=== PATIENT | female | born 1955 | race African-American/Black ===

== ENCOUNTER 2017-06-08 22:02 | Emergency (ER) | payer OTHER, MEDICAID ==
[~2017-06-08] VITALS: Ht 167.6 cm; Wt 65.0 kg
[~2017-06-08 22:02] MED LIST: ACET-3161 PO; ATEN50TA PO; NAPR-681 PO; QUET100T PO
[2017-06-08] MEDS ORDERED: SODIUM CHLORIDE 0.9% 1,000 ML IV ONE (23:12)
[2017-06-08] MEDS ORDERED: METOCLOPRAMIDE HCL 10MG/2ML VIAL IV ONE (23:15)
[2017-06-08] MEDS ORDERED: DIPHENHYDRAMINE 50MG/ML VIAL IV ONE (23:15)
[2017-06-09 00:23] LABS: BASOPHILS % 0.3 % (0.0-2.0); EOSINOPHILS % 0.1 % (0.0-5.0); HEMATOCRIT. 41.6 % (36.0-48.0); HEMOGLOBIN. 14.3 g/dL (12.0-16.0); LYMPHOCYTES % 12.6 % (20.0-50.0); MEAN CORPUSCULAR HEMOGLOBIN 33.9 pg (28.0-32.0); MEAN CORPUSCULAR VOLUME 98.9 fL (81.0-99.0); MEAN PLATELET VOLUME 7.4 fl (7.4-10.4); MONOCYTES % 6.6 % (2.0-8.0); NEUTROPHILS % 80.4 % (40.0-76.0); PLATELET 217 x1000/uL (130-400); RED BLOOD CELL COUNT 4.21 mill/uL (4.2-5.4); RED CELL DISTRIBUTION WIDTH 12.4 % (11.6-14.6)
[2017-06-09 00:36] LABS: CARBON DIOXIDE 28 mEq/L (21-32); CHLORIDE 86 mEq/L (98-107); TROPONIN I < 0.02 ng/mL (0.00-0.04)
[2017-06-09] MEDS ORDERED: MORPHINE SULFATE 4 MG/ML CPJ (NOT FOR IM USE) IV ONE (01:30)
[2017-06-09] MEDS ORDERED: NICARDIPINE 40MG/200ML PREMIX 200 ML IV SCH (01:30)
[2017-06-09] MEDS ORDERED: FENTANYL CITRATE/PF 50MCG/ML 2ML VIAL IV ONE (01:45)
[2017-06-09 02:28] VITALS: BP 165/64
== END 2017-06-09 02:37 | disposition short-term general hospital (02) ==
LOC: ER 22:33
DX: I60.9 Nontraumatic subarachnoid hemorrhage, unspecified (principal); I72.9 Aneurysm of unspecified site; I11.9 Hypertensive heart disease without heart failure; I51.7 Cardiomegaly; E78.00 Pure hypercholesterolemia, unspecified; F17.200 Nicotine dependence, unspecified, uncomplicated; Z88.0 Allergy status to penicillin; Z79.899 Other long term (current) drug therapy
CPT/HCPCS: 36415; 70450; 71010; 80053; 84484; 85025; 85610; 93005; 96374; 99285; J1200; J2270; J3010; J7030; J2765

== ENCOUNTER 2017-07-27 16:39 | Emergency (ER) | payer OTHER, MEDICAID ==
[~2017-07-27] VITALS: Ht 162.6 cm; Wt 70.0 kg
[2017-07-27] MEDS ORDERED: HYDROCODONE/ACETAMINOPHEN 5/325MG TABLET PO ONE (18:00)
[2017-07-27 18:46] VITALS: BP 182/100
== END 2017-07-27 20:10 | disposition home or self-care (01) ==
LOC: ER 16:52
DX: G91.9 Hydrocephalus, unspecified (principal); R51 Headache; E78.00 Pure hypercholesterolemia, unspecified; I10 Essential (primary) hypertension; F32.9 Major depressive disorder, single episode, unspecified; Z88.0 Allergy status to penicillin
CPT/HCPCS: 70450; 99284

== ENCOUNTER 2018-04-08 13:24 | Emergency (ER) | payer OTHER, MEDICAID ==
[~2018-04-08] VITALS: Ht 165.1 cm; Wt 70.0 kg
[2018-04-08] MEDS ORDERED: HYDROCODONE/ACETAMINOPHEN 5/325MG TABLET PO ONE (19:30)
[2018-04-08 19:57] VITALS: BP 117/87
== END 2018-04-08 20:00 | disposition home or self-care (01) ==
LOC: ER 13:24
DX: S52.591A Other fractures of lower end of right radius, initial encounter for closed fracture (principal); S72.092A Other fracture of head and neck of left femur, initial encounter for closed fracture; F32.9 Major depressive disorder, single episode, unspecified; E78.00 Pure hypercholesterolemia, unspecified; I10 Essential (primary) hypertension; W18.39XA Other fall on same level, initial encounter; Y93.89 Activity, other specified; Y92.89 Other specified places as the place of occurrence of the external cause; Y99.8 Other external cause status; Z88.0 Allergy status to penicillin; Z79.899 Other long term (current) drug therapy
CPT/HCPCS: 29125; 73090; 73110; 73130; 73502; 99284; A4565

== ENCOUNTER 2018-06-02 18:04 | Emergency (ER) | payer MEDICARE, OTHER ==
[~2018-06-02] VITALS: Ht 165.1 cm; Wt 60.0 kg
[2018-06-02] MEDS ORDERED: KETOROLAC 30MG/ML VIAL IV STA (18:49)
[2018-06-02 20:00] LABS: BASOPHILS % 1.2 % (0.0-2.0); EOSINOPHILS % 3.9 % (0.0-5.0); HEMATOCRIT. 45.2 % (36.0-48.0); HEMOGLOBIN. 14.1 g/dL (12.0-16.0); LYMPHOCYTES % 51.3 % (20.0-50.0); MEAN CORPUSCULAR HEMOGLOBIN 34.3 pg (28.0-32.0); MEAN CORPUSCULAR VOLUME 109.5 fL (81.0-99.0); MEAN PLATELET VOLUME 8.2 fl (7.4-10.4); MONOCYTES % 6.2 % (2.0-8.0); NEUTROPHILS % 37.4 % (40.0-76.0); PLATELET 270 x1000/uL (130-400); RED BLOOD CELL COUNT 4.13 mill/uL (4.2-5.4); RED CELL DISTRIBUTION WIDTH 14.1 % (11.6-14.6)
[2018-06-02 20:04] LABS: CLARITY URINE CLOUDY (CLEAR); COLOR URINE YELLOW (YELLOW); KETONES URINE NEGATIVE (NEGATIVE); LEUKOCYTE ESTERASE URINE NEGATIVE (NEGATIVE); NITRITE URINE NEGATIVE (NEGATIVE); OCCULT BLOOD URINE NEGATIVE (NEGATIVE); PH URINE >=9.0 (4.5-8.0); PROTEIN URINE NEGATIVE (NEGATIVE)
[2018-06-02 20:05] LABS: CHLORIDE 110 mEq/L (98-107)
[2018-06-02] MEDS ORDERED: TRAMADOL 50MG TABLET PO ONE (22:00)
[2018-06-02] MEDS ORDERED: ACETAMINOPHEN 325MG TABLET PO ONE (22:15)
[2018-06-03 03:40] VITALS: BP 112/84
== END 2018-06-03 03:42 | disposition home or self-care (01) ==
LOC: ER 18:04
DX: R51 Headache (principal); E78.00 Pure hypercholesterolemia, unspecified; I10 Essential (primary) hypertension; F32.9 Major depressive disorder, single episode, unspecified; Z86.73 Personal history of transient ischemic attack (TIA), and cerebral infarction without residual deficits; Z88.0 Allergy status to penicillin; Z79.899 Other long term (current) drug therapy
CPT/HCPCS: 36415; 70450; 80053; 81003; 85025; 96374; 99285; J1885; J7030

== ENCOUNTER 2018-06-03 04:10 | Emergency (ER) | payer OTHER, MEDICAID ==
[~2018-06-03] VITALS: Ht 165.1 cm; Wt 68.2 kg
[2018-06-03] MEDS ORDERED: KETOROLAC 30MG/ML VIAL IV STA (06:22)
[2018-06-03] MEDS ORDERED: ONDANSETRON HCL 4MG/2ML INJ IV STA (06:22)
[2018-06-03] MEDS ORDERED: SODIUM CHLORIDE 0.9% 1,000 ML IV ONE (06:33)
[2018-06-03 09:19] VITALS: BP 128/69
== END 2018-06-03 09:33 | disposition home or self-care (01) ==
LOC: ER 06:01
DX: R51 Headache (principal); M06.9 Rheumatoid arthritis, unspecified; I10 Essential (primary) hypertension; F17.200 Nicotine dependence, unspecified, uncomplicated
CPT/HCPCS: 96374; 96375; 99285; J1885; J2405; J7030

== ENCOUNTER 2018-07-04 17:18 | Inpatient (IN) | payer OTHER, MEDICAID ==
[~2018-07-04] VITALS: Ht 165.1 cm; Wt 68.0 kg
[2018-07-04] MEDS ORDERED: ONDANSETRON HCL 4MG/2ML INJ IV STA (18:34)
[2018-07-04] MEDS ORDERED: MORPHINE SULFATE 4 MG/ML CPJ (NOT FOR IM USE) IV STA (18:34)
[2018-07-04] MEDS ORDERED: SODIUM CHLORIDE 0.9% 1,000 ML IV ONE (18:36)
[2018-07-04 19:07] LABS: BASOPHILS % 0.8 % (0.0-2.0); EOSINOPHILS % 3.7 % (0.0-5.0); HEMATOCRIT. 42.6 % (36.0-48.0); HEMOGLOBIN. 13.9 g/dL (12.0-16.0); LYMPHOCYTES % 28.7 % (20.0-50.0); MEAN CORPUSCULAR VOLUME 104.6 fL (81.0-99.0); MEAN PLATELET VOLUME 7.2 fl (7.4-10.4); MONOCYTES % 4.1 % (2.0-8.0); NEUTROPHILS % 62.7 % (40.0-76.0); PLATELET 274 x1000/uL (130-400); RED BLOOD CELL COUNT 4.07 mill/uL (4.2-5.4); RED CELL DISTRIBUTION WIDTH 14.5 % (11.6-14.6)
[2018-07-04 19:15] LABS: CHLORIDE 107 mEq/L (98-107); PARTIAL THROMBOPLASTIN TIME 26.4 sec (23.4-31.0); PROTHROMBIN TIME 10.1 sec (9.1-11.1)
[2018-07-04 19:25] LABS: ETHANOL BLOOD < 10 mg/dL
[2018-07-04] MEDS ORDERED: MORPHINE SULFATE 4 MG/ML CPJ (NOT FOR IM USE) IV ONE (21:45)
[2018-07-04] MEDS ORDERED: ONDANSETRON HCL 4MG/2ML INJ IV ONE (21:45)
[2018-07-04] MEDS ORDERED: ENALAPRIL 2.5MG/2ML VIAL 2ML IV ONE (21:45)
[2018-07-04] MEDS ORDERED: IOHEXOL-350 100 ML BOTTLE ONE (22:05)
[2018-07-05] MEDS ORDERED: HYDROMORPHONE HCL/PF 2MG/ML CPJ IV PRN (01:30)
[2018-07-05 04:00] VITALS: BP 138/72
[2018-07-05] MEDS ORDERED: ACETAMINOPHEN WITH CODEINE PO PRN (04:30)
[2018-07-05] MEDS ORDERED: CLONIDINE 0.1MG TABLET PO PRN (04:45)
[2018-07-05] MEDS ORDERED: ONDANSETRON HCL 4MG/2ML INJ IV PRN (04:45)
[2018-07-05] MEDS ORDERED: ACETAMINOPHEN WITH CODEINE 300/30MG TABLET PO PRN (04:45)
[2018-07-05 08:00] VITALS: BP 146/48
[2018-07-05] MEDS: NAPROXEN 250MG TABLET PO SCH ×2 (08:18→13:42)
[2018-07-05] MEDS: QUETIAPINE FUMARATE 100MG TABLET PO SCH ×3 (08:18→17:42)
[2018-07-05] MEDS: ATENOLOL 50 MG TABLET PO SCH (08:19)
[2018-07-05] MEDS ORDERED: MEDICATION NOT ON FORMULARY EA (Atenolol 1 TAB) PO SCH (09:00)
[2018-07-05] MEDS ORDERED: NAPROXEN PO SCH (09:00)
[2018-07-05 12:00] VITALS: BP 133/78
[2018-07-05 16:00] VITALS: BP 98/57
[2018-07-05 20:00] VITALS: BP 99/53
[2018-07-06] VITALS: BP 95/71
[2018-07-06] MEDS: METHYLPREDNISOLONE 4MG TABLET PO SCH ×2 (00:32→09:48)
[2018-07-06] MEDS: FAMOTIDINE 20MG TABLET PO SCH ×2 (00:32→09:48)
[2018-07-06] MEDS: HYDROMORPHONE HCL/PF 2MG/ML CPJ IV PRN ×2 (00:35→09:47)
[2018-07-06 04:00] VITALS: BP 120/74
[2018-07-06 08:00] VITALS: BP 155/95
[2018-07-06] MEDS: QUETIAPINE FUMARATE 100MG TABLET PO SCH (09:47)
[2018-07-06] MEDS: ATENOLOL 50 MG TABLET PO SCH (09:48)
[2018-07-06] MEDS ORDERED: HYDR-4001 PO ×2 (11:23→11:24)
[2018-07-06 11:25] VITALS: BP 155/95
== END 2018-07-06 12:05 | disposition home or self-care (01) | DRG 74 ==
LOC: ER 17:18 → 7WST 21:55 → EDBEDREQ 22:03 → EDBEDREQTM 22:03 → ENRESERV 07-05 02:24 → 7WST 07-05 05:20
PROVIDERS: ADMIT Internal Medicine; ATTEND Internal Medicine
DX: G90.8 Other disorders of autonomic nervous system (principal); I10 Essential (primary) hypertension; F17.210 Nicotine dependence, cigarettes, uncomplicated; G43.909 Migraine, unspecified, not intractable, without status migrainosus; M19.90 Unspecified osteoarthritis, unspecified site; F32.9 Major depressive disorder, single episode, unspecified; Z86.79 Personal history of other diseases of the circulatory system; Z88.0 Allergy status to penicillin; Z79.899 Other long term (current) drug therapy; Z71.6 Tobacco abuse counseling
CPT/HCPCS: 36415; 70496; 71045; 83880; 84484; 93005; 96361; 96374; 96375; 99291; G0482; J1170; J2270; J2405; J3490; J7030; J7509; Q9967

== ENCOUNTER 2018-08-31 09:45 | Emergency (ER) | payer OTHER, MEDICAID ==
[~2018-08-31] VITALS: Ht 165.1 cm; Wt 70.0 kg
[~2018-08-31 09:45] MED LIST changes: +HYDR-4001 PO
[2018-08-31] MEDS ORDERED: SODIUM CHLORIDE 0.9% 1,000 ML IV ONE (11:05)
[2018-08-31] MEDS ORDERED: MORPHINE SULFATE 4 MG/ML CPJ (NOT FOR IM USE) IV STA (11:05)
[2018-08-31 12:20] LABS: BASOPHILS % 0.9 % (0.0-2.0); EOSINOPHILS % 0.8 % (0.0-5.0); HEMATOCRIT. 42.4 % (36.0-48.0); LYMPHOCYTES % 31.1 % (20.0-50.0); MEAN CORPUSCULAR HEMOGLOBIN 34.6 pg (28.0-32.0); MEAN CORPUSCULAR VOLUME 105.2 fL (81.0-99.0); MONOCYTES % 6.6 % (2.0-8.0); NEUTROPHILS % 60.6 % (40.0-76.0); RED BLOOD CELL COUNT 4.03 mill/uL (4.2-5.4); RED CELL DISTRIBUTION WIDTH 14.5 % (11.6-14.6)
[2018-08-31 12:23] LABS: CHLORIDE 104 mEq/L (98-107)
[2018-08-31 12:25] LABS: PROTHROMBIN TIME 10.3 sec (9.1-11.1)
[2018-08-31 13:00] LABS: PLATELET 267 x1000/uL (130-400)
[2018-08-31] MEDS ORDERED: MORPHINE SULFATE 10 MG/ML CPJ IV NR (13:47)
[2018-08-31] MEDS ORDERED: MORPHINE SULFATE 10 MG/ML CPJ IM ONE (14:30)
[2018-08-31 16:13] LABS: CLARITY URINE CLEAR (CLEAR); COLOR URINE YELLOW (YELLOW); KETONES URINE TRACE (NEGATIVE); LEUKOCYTE ESTERASE URINE NEGATIVE (NEGATIVE); NITRITE URINE NEGATIVE (NEGATIVE); OCCULT BLOOD URINE NEGATIVE (NEGATIVE); PH URINE 6.5 (4.5-8.0); PROTEIN URINE TRACE (NEGATIVE); SPECIFIC GRAVITY URINE 1.019 (1.005-1.030)
[2018-08-31 16:44] VITALS: BP 148/92
== END 2018-08-31 16:50 | disposition home or self-care (01) ==
LOC: ER 09:45
DX: R51 Headache (principal); R10.9 Unspecified abdominal pain; F32.9 Major depressive disorder, single episode, unspecified; R61 Generalized hyperhidrosis; I10 Essential (primary) hypertension; M19.90 Unspecified osteoarthritis, unspecified site; R50.9 Fever, unspecified; Z88.0 Allergy status to penicillin; Z79.899 Other long term (current) drug therapy
CPT/HCPCS: 36415; 70450; 74176; 80053; 81003; 83690; 85025; 85610; 96372; 99284; J2270; J7030

== ENCOUNTER 2019-01-08 20:05 | Inpatient (IN) | payer OTHER, MEDICAID ==
[~2019-01-08] VITALS: Ht 162.6 cm; Wt 67.1 kg
[2019-01-08] MEDS ORDERED: DIPHENHYDRAMINE 50MG/ML VIAL IV ONE (22:45)
[2019-01-08] MEDS ORDERED: SODIUM CHLORIDE 0.9% 500 ML IV ONE (22:45)
[2019-01-08] MEDS ORDERED: METOCLOPRAMIDE HCL 10MG/2ML VIAL IV ONE (22:45)
[2019-01-08 23:18] LABS: BASOPHILS % 1.2 % (0.0-2.0); EOSINOPHILS % 8.3 % (0.0-5.0); HEMATOCRIT. 36.7 % (36.0-48.0); LYMPHOCYTES % 52.5 % (20.0-50.0); MEAN CORPUSCULAR HEMOGLOBIN 34.1 pg (28.0-32.0); MEAN CORPUSCULAR VOLUME 104.1 fL (81.0-99.0); MONOCYTES % 5.5 % (2.0-8.0); NEUTROPHILS % 32.5 % (40.0-76.0); RED BLOOD CELL COUNT 3.53 mill/uL (4.2-5.4); RED CELL DISTRIBUTION WIDTH 14.2 % (11.6-14.6)
[2019-01-08 23:23] LABS: CHLORIDE 108 mEq/L (98-107)
[2019-01-09] VITALS (7 sets, daily range): BP systolic 129–166; BP diastolic 69–94
[2019-01-09 00:21] LABS: MEAN PLATELET VOLUME 7.4 fl (7.4-10.4)
[2019-01-09 00:22] LABS: PLATELET 263 x1000/uL (130-400)
[2019-01-09] MEDS ORDERED: KETOROLAC 30MG/ML VIAL IV ONE (00:45)
[2019-01-09] MEDS ORDERED: HYDROCODONE/ACETAMINOPHEN 5/325MG TABLET PO ONE (01:30)
[2019-01-09 04:39] LABS: CLARITY URINE CLEAR (CLEAR); COLOR URINE YELLOW (YELLOW); KETONES URINE NEGATIVE (NEGATIVE); LEUKOCYTE ESTERASE URINE NEGATIVE (NEGATIVE); NITRITE URINE NEGATIVE (NEGATIVE); OCCULT BLOOD URINE NEGATIVE (NEGATIVE); PH URINE 5.5 (4.5-8.0); PROTEIN URINE NEGATIVE (NEGATIVE); SPECIFIC GRAVITY URINE 1.004 (1.005-1.030); UROBILINOGEN URINE 0.2 E.U./dL (0.2-1.0)
[2019-01-09] MEDS ORDERED: ALPR2TAB2 PO (05:39)
[2019-01-09] MEDS ORDERED: CLON0.1T PO (05:39)
[2019-01-09] MEDS ORDERED: ZOLP10TA2 PO (05:39)
[2019-01-09] MEDS ORDERED: NITROGLYCERIN OINT 1GM/INCH UDPKT TD PRN (06:30)
[2019-01-09] MEDS ORDERED: ACETAMINOPHEN WITH CODEINE PO PRN (06:30)
[2019-01-09] MEDS ORDERED: ACETAMINOPHEN WITH CODEINE 300/30MG TABLET PO PRN (07:15)
[2019-01-09] MEDS: QUETIAPINE FUMARATE 100MG TABLET PO SCH ×3 (08:24→19:39)
[2019-01-09] MEDS: HYDROMORPHONE HCL/PF 2MG/ML CPJ IV PRN ×2 (08:26→13:06)
[2019-01-09] MEDS ORDERED: CLONIDINE 0.1MG TABLET PO SCH (09:00)
[2019-01-09] MEDS ORDERED: FAMOTIDINE 20MG TABLET PO SCH (09:00)
[2019-01-09 10:45] LABS: BASOPHILS % 0.8 % (0.0-2.0); EOSINOPHILS % 4.9 % (0.0-5.0); HEMATOCRIT. 37.2 % (36.0-48.0); HEMOGLOBIN. 12.1 g/dL (12.0-16.0); MEAN CORPUSCULAR HEMOGLOBIN 33.9 pg (28.0-32.0); MEAN CORPUSCULAR VOLUME 104.1 fL (81.0-99.0); MEAN PLATELET VOLUME 7.4 fl (7.4-10.4); MONOCYTES % 3.3 % (2.0-8.0); PLATELET 289 x1000/uL (130-400); RED BLOOD CELL COUNT 3.58 mill/uL (4.2-5.4); RED CELL DISTRIBUTION WIDTH 14.5 % (11.6-14.6)
[2019-01-09 10:54] LABS: CHLORIDE 112 mEq/L (98-107)
[2019-01-09] MEDS ORDERED: ALPRAZOLAM 0.25 MG TABLET PO PRN (11:30)
[2019-01-09 12:08] LABS: PROTHROMBIN TIME 10.2 sec (9.6-11.0)
[2019-01-09] MEDS ORDERED: SODIUM CHLORIDE 0.45% 1,000 ML IV SCH (13:00)
[2019-01-09] MEDS ORDERED: AMLODIPINE 5MG TABLET PO SCH (13:00)
[2019-01-09 13:06] LABS: METHADONE URINE SCREEN NEGATIVE (NEGATIVE)
[2019-01-09 13:07] LABS: CANNABINOID URINE SCREEN PRESUMTIVE POSITIVE (NEGATIVE); OPIATES URINE SCREEN NEGATIVE (NEGATIVE); PHENCYCLIDINE URINE SCREEN NEGATIVE (NEGATIVE)
[2019-01-09 13:15] LABS: *AMPHETAMINES SCREEN URINE NEGATIVE (NEGATIVE)
[2019-01-09 13:18] LABS: *BARBITURATES SCREEN URINE NEGATIVE (NEGATIVE)
[2019-01-09 13:19] LABS: *BENZODIAZEPINES SCREEN URINE NEGATIVE (NEGATIVE); *COCAINE SCREEN URINE PRESUMTIVE POSITIVE (NEGATIVE)
[2019-01-09] MEDS ORDERED: IOHEXOL-350 100 ML BOTTLE ONE (17:41)
== END 2019-01-09 21:37 | disposition home or self-care (01) | DRG 103 ==
LOC: ER 20:05 → EDBEDREQ 01-09 03:16 → EDBEDREQTM 01-09 03:16 → ENRESERV 01-09 03:26 → 6WST 01-09 05:17
PROVIDERS: ADMIT Internal Medicine; ATTEND Internal Medicine
DX: G43.909 Migraine, unspecified, not intractable, without status migrainosus (principal); J44.1 Chronic obstructive pulmonary disease with (acute) exacerbation; E86.0 Dehydration; E78.5 Hyperlipidemia, unspecified; F17.200 Nicotine dependence, unspecified, uncomplicated; F32.9 Major depressive disorder, single episode, unspecified; I10 Essential (primary) hypertension; R29.6 Repeated falls; F19.10 Other psychoactive substance abuse, uncomplicated; I72.9 Aneurysm of unspecified site; W18.30XA Fall on same level, unspecified, initial encounter; R26.9 Unspecified abnormalities of gait and mobility; Y92.89 Other specified places as the place of occurrence of the external cause; Y93.89 Activity, other specified; Y99.8 Other external cause status; Z79.1 Long term (current) use of non-steroidal anti-inflammatories (NSAID); Z79.899 Other long term (current) drug therapy
CPT/HCPCS: 36415; 70496; 71045; 80305; 83880; 84484; 93005; 96374; 97162; 99285; J1170; J1200; J1885; J2765; J7040; Q9967

== ENCOUNTER 2019-04-05 09:36 | Emergency (ER) | payer OTHER, MEDICAID ==
[~2019-04-05] VITALS: Ht 167.6 cm; Wt 76.0 kg
[~2019-04-05 09:36] MED LIST changes: +ALPR2TAB2 PO; -ATEN50TA PO; +CLON0.1T PO; -HYDR-4001 PO; +ZOLP10TA2 PO
[2019-04-05] MEDS ORDERED: TRAMADOL 50MG TABLET PO ONE (10:15)
[2019-04-05] MEDS ORDERED: ACETAMINOPHEN 325MG TABLET PO STA (10:15)
[2019-04-05] MEDS ORDERED: CLONIDINE 0.2MG TABLET PO ONE (10:15)
[2019-04-05 10:26] LABS: EOSINOPHILS % 5.8 % (0.0-5.0); HEMATOCRIT. 47.5 % (36.0-48.0); HEMOGLOBIN. 15.6 g/dL (12.0-16.0); LYMPHOCYTES % 38.6 % (20.0-50.0); MEAN CORPUSCULAR HEMOGLOBIN 34.1 pg (28.0-32.0); MEAN CORPUSCULAR VOLUME 103.5 fL (81.0-99.0); MONOCYTES % 4.8 % (2.0-8.0); NEUTROPHILS % 49.8 % (40.0-76.0); RED BLOOD CELL COUNT 4.58 mill/uL (4.2-5.4); RED CELL DISTRIBUTION WIDTH 14.2 % (11.6-14.6)
[2019-04-05 11:19] LABS: MEAN PLATELET VOLUME 7.5 fl (7.4-10.4); PLATELET 331 x1000/uL (130-400)
[2019-04-05 12:09] LABS: CHLORIDE 106 mEq/L (98-107)
[2019-04-05] MEDS ORDERED: IBUPROFEN 400MG TABLET PO ONE (13:30)
[2019-04-05 14:52] VITALS: BP 134/85
== END 2019-04-05 15:03 | disposition home or self-care (01) ==
LOC: ER 10:02
DX: R51 Headache (principal); M54.5 Low back pain; I10 Essential (primary) hypertension; M19.90 Unspecified osteoarthritis, unspecified site; F32.9 Major depressive disorder, single episode, unspecified; I67.1 Cerebral aneurysm, nonruptured; Z88.0 Allergy status to penicillin; W18.2XXA Fall in (into) shower or empty bathtub, initial encounter; Y93.E1 Activity, personal bathing and showering; Y92.012 Bathroom of single-family (private) house as the place of occurrence of the external cause
CPT/HCPCS: 36415; 71045; 72100; 83880; 84484; 93005; 99284

== ENCOUNTER 2020-05-26 12:48 | Emergency (ER) | payer OTHER, MEDICAID ==
[~2020-05-26] VITALS: Ht 170.2 cm; Wt 59.0 kg
[2020-05-26] MEDS ORDERED: MORPHINE SULFATE 4 MG/ML CPJ (NOT FOR IM USE) IV STA (13:14)
[2020-05-26] MEDS ORDERED: ONDANSETRON HCL 4MG/2ML INJ IV STA (13:14)
[2020-05-26 14:14] LABS: BASOPHILS % 1.6 % (0.0-2.0); EOSINOPHILS % 5.4 % (0.0-5.0); HEMATOCRIT. 40.3 % (36.0-48.0); HEMOGLOBIN. 13.4 g/dL (12.0-16.0); LYMPHOCYTES % 52.8 % (20.0-50.0); MEAN CORPUSCULAR HEMOGLOBIN 35.2 pg (28.0-32.0); MEAN CORPUSCULAR VOLUME 105.8 fL (81.0-99.0); MEAN PLATELET VOLUME 7.2 fl (7.4-10.4); MONOCYTES % 6.2 % (2.0-8.0); PLATELET 283 x1000/uL (130-400); RED CELL DISTRIBUTION WIDTH 17.7 % (11.6-14.6)
[2020-05-26 14:21] LABS: CHLORIDE 107 mEq/L (98-107)
[2020-05-26 14:24] LABS: PROTHROMBIN TIME 10.5 sec (9.6-11.0)
[2020-05-26] MEDS ORDERED: FENTANYL CITRATE/PF 50MCG/ML 2ML VIAL IV ONE ×3 (14:30→17:45)
[2020-05-26 14:48] LABS: CLARITY URINE CLOUDY (CLEAR); COLOR URINE DARK YELLOW (YELLOW); KETONES URINE TRACE (NEGATIVE); LEUKOCYTE ESTERASE URINE NEGATIVE (NEGATIVE); NITRITE URINE NEGATIVE (NEGATIVE); OCCULT BLOOD URINE NEGATIVE (NEGATIVE); PROTEIN URINE TRACE (NEGATIVE); SPECIFIC GRAVITY URINE 1.027 (1.005-1.030)
[2020-05-26 18:36] VITALS: BP 118/84
== END 2020-05-26 18:39 | disposition home or self-care (01) ==
LOC: ER 12:48
DX: S09.8XXA Other specified injuries of head, initial encounter (principal); W18.39XA Other fall on same level, initial encounter; Y93.89 Activity, other specified; Y92.89 Other specified places as the place of occurrence of the external cause; Y99.8 Other external cause status; F17.290 Nicotine dependence, other tobacco product, uncomplicated; F32.9 Major depressive disorder, single episode, unspecified; I10 Essential (primary) hypertension; Z79.899 Other long term (current) drug therapy; Z88.0 Allergy status to penicillin
CPT/HCPCS: 36415; 70450; 71045; 72125; 80053; 81003; 85025; 85610; 93005; 96374; 96375; 96376; 99285; 99406; J2405; J3010

== ENCOUNTER 2024-05-21 19:27 | Emergency (ER) | payer MEDICARE, MEDICAID ==
[~2024-05-21] VITALS: Ht 165.1 cm; Wt 57.0 kg
[~2024-05-21 19:27] MED LIST changes: +AMLO5TAB4 MT; +ASPI-1406 MT; +ATOR20TA65 PO
[2024-05-21 19:35] VITALS: BP 147/8; TEMP 98.1; O2SAT 98
[2024-05-21 19:36] VITALS: PULSE 99; O2SAT 98
[2024-05-21] MEDS ORDERED: ZOLP5TAB2 MT (20:15)
[2024-05-21] MEDS ORDERED: GABA-529 MT (20:15)
[2024-05-21] MEDS ORDERED: ONDA4TAB50 MT (20:15)
[2024-05-21] MEDS ORDERED: HYDR-4001 MT (20:15)
[2024-05-21 20:30] VITALS: RESP 19
== END 2024-05-21 20:35 | disposition home or self-care (01) ==
LOC: ER 19:27
DX: R68.89 Other general symptoms and signs (principal); F32.9 Major depressive disorder, single episode, unspecified; I10 Essential (primary) hypertension; Z79.899 Other long term (current) drug therapy; Z76.0 Encounter for issue of repeat prescription; Z88.0 Allergy status to penicillin
CPT/HCPCS: 99283

== ENCOUNTER 2025-07-26 11:28 | Inpatient (IN) | payer MEDICARE, MEDICAID ==
[~2025-07-26] VITALS: Ht 165.1 cm; Wt 62.1 kg
[~2025-07-26 11:28] MED LIST changes: -ACET-3161 PO; -ALPR2TAB2 PO; -AMLO5TAB4 MT; +AMLO5TAB6 MT; +ASCO500T20 PO; -ASPI-1406 MT; +DOCU-422 PO; +GABA-529 MT; -NAPR-681 PO; +ONDA4TAB50 MT; +PROT40 MT; +QUET50TA PO; +SUCR1TAB PO; -ZOLP10TA2 PO
[2025-07-26 11:31] VITALS: O2SAT 96
[2025-07-26] MEDS: SODIUM CHLORIDE 0.9% 1,000 ML IV ONE (12:12)
[2025-07-26 12:21] LABS: BASOPHILS % 0.9 % (0.0-2.0); EOSINOPHILS % 3.0 % (0.0-5.0); HEMATOCRIT. 42.1 % (36.0-48.0); HEMOGLOBIN. 13.7 g/dL (12.0-16.0); LYMPHOCYTES % 24.9 % (20.0-50.0); MEAN PLATELET VOLUME 6.4 fl (7.4-10.4); MONOCYTES % 6.9 % (2.0-8.0); NEUTROPHILS % 64.3 % (40.0-76.0); PLATELET 415 x1000/uL (130-400); RED BLOOD CELL COUNT 4.15 mill/uL (4.2-5.4); RED CELL DISTRIBUTION WIDTH 15.5 % (11.6-14.6)
[2025-07-26 12:34] LABS: CREATININE 0.9 mg/dL (0.6-1.0); UREA NITROGEN BLOOD 12 mg/dL (9-23)
[2025-07-26 12:36] LABS: ASPARTATE AMINOTRANSFERASE 23 IU/L (<34); BILIRUBIN DIRECT < 0.1 mg/dL (<=3.0); BILIRUBIN TOTAL 0.4 mg/dL (0.1-1.0); PROTEIN TOTAL 7.9 g/dL (6.0-8.3)
[2025-07-26] MEDS: MORPHINE SULFATE 4 MG/ML INJ (FOR IV/IM USE) IV ONE (12:57)
[2025-07-26] MEDS: ONDANSETRON HCL 4MG/2ML INJ IV ONE (12:58)
[2025-07-26 15:48] VITALS: BP 145/95; RESP 16; TEMP 36.9; O2SAT 100
[2025-07-26 16:27] VITALS: BP 147/95; PULSE 93; RESP 16; TEMP 36.9184
[2025-07-26] MEDS ORDERED: MAGNESIUM/ALUMINUM HYDROXIDE/SIMETHICONE 30ML UDC PO PRN (17:00)
[2025-07-26] MEDS ORDERED: IPRATROPIUM/ALBUTEROL 0.5-3(2.5)MG/3ML NEB HHN PRN (17:00)
[2025-07-26] MEDS ORDERED: DOCUSATE SODIUM 100MG CAPSULE PO PRN (17:00)
[2025-07-26] MEDS ORDERED: ACETAMINOPHEN 325MG TABLET PO PRN (17:00)
[2025-07-26] MEDS ORDERED: PNEUMOCOCCAL 20-VAL CONJ-DIP CRM 0.5ML IM ONE (17:15)
[2025-07-26] MEDS ORDERED: INFLUENZA VACCINE 05/PF 0.5 ML SYRINGE IM ONE (17:15)
[2025-07-26] MEDS: PANTOPRAZOLE SODIUM 40 MG/VIAL IV SCH (18:28)
[2025-07-26] MEDS: ACETAMINOPHEN 325MG TABLET PO PRN (18:28)
[2025-07-26 20:00] VITALS: BP 131/89; PULSE 97; RESP 20; TEMP 36.3; O2SAT 99
[2025-07-26] MEDS: METOPROLOL TARTRATE 25MG TABLET PO SCH (20:47)
[2025-07-26] MEDS: QUETIAPINE FUMARATE 50MG TABLET PO SCH (22:08)
[2025-07-26] MEDS ORDERED: NALOXONE HCL 0.4MG/ML VIAL IV PRN (22:15)
[2025-07-26] MEDS ORDERED: IOHEXOL-300 100 ML BOTTLE ONE (23:36)
[2025-07-27] VITALS: BP 139/86; PULSE 70; RESP 19; TEMP 36.6; O2SAT 100
[2025-07-27 04:00] VITALS: BP 128/89; PULSE 79; RESP 19; TEMP 36.2; O2SAT 100
[2025-07-27 08:00] VITALS: BP 183/97; PULSE 79; RESP 20; TEMP 36.3; O2SAT 100
[2025-07-27 08:29] LABS: BASOPHILS % 1.7 % (0.0-2.0); EOSINOPHILS % 4.9 % (0.0-5.0); HEMATOCRIT. 43.3 % (36.0-48.0); HEMOGLOBIN. 13.9 g/dL (12.0-16.0); LYMPHOCYTES % 30.2 % (20.0-50.0); MEAN PLATELET VOLUME 6.9 fl (7.4-10.4); MONOCYTES % 7.8 % (2.0-8.0); NEUTROPHILS % 55.4 % (40.0-76.0); PLATELET 410 x1000/uL (130-400); RED BLOOD CELL COUNT 4.20 mill/uL (4.2-5.4); RED CELL DISTRIBUTION WIDTH 15.4 % (11.6-14.6)
[2025-07-27 08:40] LABS: CREATININE 0.8 mg/dL (0.6-1.0); INR 0.9; UREA NITROGEN BLOOD 7 mg/dL (9-23)
[2025-07-27 08:41] LABS: ASPARTATE AMINOTRANSFERASE 13 IU/L (<34)
[2025-07-27 08:42] LABS: BILIRUBIN DIRECT 0.1 mg/dL (<=3.0); BILIRUBIN TOTAL 0.4 mg/dL (0.1-1.0); PHOSPHORUS 2.5 mg/dL (2.5-4.9)
[2025-07-27 08:43] LABS: PROTEIN TOTAL 7.8 g/dL (6.0-8.3)
[2025-07-27] MEDS: HYDROCODONE/ACETAMINOPHEN 5/325MG TABLET PO PRN (09:05)
[2025-07-27 12:00] VITALS: BP 145/86; PULSE 72; RESP 18; TEMP 36.2; O2SAT 100
[2025-07-27] MEDS: CLONIDINE 0.1MG TABLET PO PRN (14:44)
[2025-07-27 16:00] VITALS: BP 138/100; PULSE 73; RESP 20; TEMP 36.3; O2SAT 98
[2025-07-27 20:00] VITALS: BP 126/78; PULSE 84; RESP 19; TEMP 36.6; O2SAT 98
[2025-07-27] MEDS: QUETIAPINE FUMARATE 50MG TABLET PO SCH (22:06)
[2025-07-28] VITALS: BP 129/78; PULSE 81; RESP 19; TEMP 36.4; O2SAT 98
[2025-07-28 04:00] VITALS: BP 137/79; PULSE 86; RESP 18; TEMP 36.3; O2SAT 100
[2025-07-28 08:00] VITALS: BP 140/86; PULSE 94; RESP 20; TEMP 36.2; O2SAT 97
[2025-07-28 10:20] LABS: BASOPHILS % 2.2 % (0.0-2.0); EOSINOPHILS % 4.2 % (0.0-5.0); HEMATOCRIT. 42.1 % (36.0-48.0); HEMOGLOBIN. 13.5 g/dL (12.0-16.0); LYMPHOCYTES % 27.2 % (20.0-50.0); MEAN PLATELET VOLUME 6.7 fl (7.4-10.4); MONOCYTES % 6.0 % (2.0-8.0); NEUTROPHILS % 60.4 % (40.0-76.0); PLATELET 385 x1000/uL (130-400); RED BLOOD CELL COUNT 4.06 mill/uL (4.2-5.4); RED CELL DISTRIBUTION WIDTH 15.4 % (11.6-14.6)
[2025-07-28 10:31] LABS: CREATININE 0.8 mg/dL (0.6-1.0); UREA NITROGEN BLOOD 10 mg/dL (9-23)
[2025-07-28 12:00] VITALS: BP 124/72; PULSE 78; RESP 14; TEMP 36.3; O2SAT 98
[2025-07-28] MEDS: POTASSIUM CHLORIDE 20MEQ TABLET SR PO NR (15:53)
[2025-07-28 16:00] VITALS: BP 159/83; PULSE 75; RESP 16; TEMP 36.6; O2SAT 100
[2025-07-28 20:00] VITALS: BP 149/95; PULSE 86; RESP 18; TEMP 36.4; O2SAT 97
[2025-07-29] VITALS: BP 133/75; PULSE 89; RESP 19; TEMP 36.5; O2SAT 9
[2025-07-29 04:00] VITALS: BP 132/79; PULSE 83; RESP 19; TEMP 36.3; O2SAT 97
[2025-07-29 06:13] LABS: BASOPHILS % 1.5 % (0.0-2.0); EOSINOPHILS % 5.1 % (0.0-5.0); HEMATOCRIT. 37.6 % (36.0-48.0); HEMOGLOBIN. 12.3 g/dL (12.0-16.0); LYMPHOCYTES % 34.1 % (20.0-50.0); MEAN PLATELET VOLUME 6.3 fl (7.4-10.4); MONOCYTES % 8.8 % (2.0-8.0); NEUTROPHILS % 50.5 % (40.0-76.0); PLATELET 393 x1000/uL (130-400); RED BLOOD CELL COUNT 3.66 mill/uL (4.2-5.4); RED CELL DISTRIBUTION WIDTH 15.1 % (11.6-14.6)
[2025-07-29 06:18] LABS: CREATININE 0.7 mg/dL (0.6-1.0); UREA NITROGEN BLOOD 11 mg/dL (9-23)
[2025-07-29 08:00] VITALS: BP 148/91; PULSE 80; RESP 18; TEMP 36.3; O2SAT 100
[2025-07-29] MEDS: ONDANSETRON HCL 4MG/2ML INJ IV PRN (08:33)
[2025-07-29 12:00] VITALS: BP 127/74; PULSE 67; RESP 16; TEMP 36.2; O2SAT 98
[2025-07-29 16:00] VITALS: BP 128/16; PULSE 68; RESP 18; TEMP 36.4; O2SAT 99
[2025-07-29 20:00] VITALS: BP 132/70; PULSE 82; RESP 16; TEMP 36.4; O2SAT 98
[2025-07-30] VITALS: BP 140/83; PULSE 86; RESP 18; TEMP 36.7; O2SAT 98
[2025-07-30] MEDS: DEXT 5%/0.45% NACL 1000ML 1,000 ML IV ONE (02:28)
[2025-07-30 04:00] VITALS: BP 142/82; PULSE 78; RESP 16; TEMP 36.4; O2SAT 98
[2025-07-30 06:20] LABS: INR 1.0
[2025-07-30 06:21] LABS: BASOPHILS % 2.1 % (0.0-2.0); EOSINOPHILS % 7.1 % (0.0-5.0); HEMATOCRIT. 36.7 % (36.0-48.0); HEMOGLOBIN. 12.0 g/dL (12.0-16.0); LYMPHOCYTES % 42.4 % (20.0-50.0); MEAN PLATELET VOLUME 6.6 fl (7.4-10.4); MONOCYTES % 8.9 % (2.0-8.0); NEUTROPHILS % 39.5 % (40.0-76.0); PLATELET 393 x1000/uL (130-400); RED BLOOD CELL COUNT 3.60 mill/uL (4.2-5.4); RED CELL DISTRIBUTION WIDTH 15.3 % (11.6-14.6)
[2025-07-30 06:26] LABS: CREATININE 0.7 mg/dL (0.6-1.0); UREA NITROGEN BLOOD 12 mg/dL (9-23)
[2025-07-30 06:28] LABS: ASPARTATE AMINOTRANSFERASE 13 IU/L (<34); BILIRUBIN TOTAL 0.3 mg/dL (0.1-1.0); PROTEIN TOTAL 6.9 g/dL (6.0-8.3)
[2025-07-30 08:00] VITALS: BP 152/106; PULSE 76; RESP 16; TEMP 36.5; O2SAT 97
[2025-07-30 12:00] VITALS: BP 141/80; PULSE 80; RESP 16; TEMP 36.1; O2SAT 98
[2025-07-30] MEDS ORDERED: PROPOFOL 200MG/20ML VIAL IV ONE (13:32)
[2025-07-30 16:00] VITALS: BP 106/58; PULSE 76; RESP 16; TEMP 36.2; O2SAT 98
[2025-07-30] MEDS: SUCRALFATE 1G TABLET PO SCH (18:20)
[2025-07-30 20:00] VITALS: BP 126/79; PULSE 77; RESP 18; TEMP 36.4; O2SAT 98
[2025-07-31] VITALS: BP 133/81; PULSE 77; RESP 18; TEMP 36.3; O2SAT 100
[2025-07-31 04:00] VITALS: BP 140/80; PULSE 90; RESP 20; TEMP 36.4; O2SAT 100
[2025-07-31 08:00] VITALS: BP 131/79; PULSE 80; RESP 18; TEMP 36.5; O2SAT 100
[2025-07-31 09:49] LABS: BASOPHILS % 1.3 % (0.0-2.0); EOSINOPHILS % 6.3 % (0.0-5.0); HEMATOCRIT. 37.3 % (36.0-48.0); HEMOGLOBIN. 12.0 g/dL (12.0-16.0); LYMPHOCYTES % 44.3 % (20.0-50.0); MEAN PLATELET VOLUME 6.7 fl (7.4-10.4); MONOCYTES % 9.6 % (2.0-8.0); NEUTROPHILS % 38.5 % (40.0-76.0); PLATELET 439 x1000/uL (130-400); RED BLOOD CELL COUNT 3.54 mill/uL (4.2-5.4); RED CELL DISTRIBUTION WIDTH 15.3 % (11.6-14.6)
[2025-07-31 10:09] LABS: CREATININE 0.8 mg/dL (0.6-1.0); UREA NITROGEN BLOOD 10 mg/dL (9-23)
[2025-07-31] MEDS ORDERED: CLON-493 PO (13:30)
[2025-07-31] MEDS ORDERED: QUET50TA PO (13:30)
[2025-07-31] MEDS ORDERED: METO25TA6 PO (13:30)
[2025-07-31] MEDS ORDERED: SUCR1TAB PO (13:30)
[2025-07-31 14:44] VITALS: BP 126/71; PULSE 75; RESP 18; TEMP 97.6
== END 2025-07-31 16:15 | disposition home or self-care (01) | DRG 392 ==
LOC: ER 11:28 → 7WST 14:00 → EDBEDREQTM 14:04 → EDBEDREQ 14:04 → ENRESERV 14:10
PROVIDERS: ADMIT Internal Medicine; ATTEND Internal Medicine
PROC: 0DB78ZX Excision of Stomach, Pylorus, Via Natural or Artificial Opening Endoscopic, Diagnostic (ICD-10-PCS; principal; 2025-07-30)
DX: K29.00 Acute gastritis without bleeding (principal); K26.9 Duodenal ulcer, unspecified as acute or chronic, without hemorrhage or perforation; Z79.01 Long term (current) use of anticoagulants; I10 Essential (primary) hypertension; M06.9 Rheumatoid arthritis, unspecified; K29.80 Duodenitis without bleeding; F17.210 Nicotine dependence, cigarettes, uncomplicated; K21.9 Gastro-esophageal reflux disease without esophagitis; K44.9 Diaphragmatic hernia without obstruction or gangrene; K57.30 Diverticulosis of large intestine without perforation or abscess without bleeding; Z79.899 Other long term (current) drug therapy; Z88.0 Allergy status to penicillin; Z86.73 Personal history of transient ischemic attack (TIA), and cerebral infarction without residual deficits; Z86.79 Personal history of other diseases of the circulatory system
CPT/HCPCS: 36415; 74177; 80048; 80053; 80076; 82962; 83036; 83735; 84100; 85025; 86850; 86900; 88305; 88312; 88313; 92610; 93005; 93970; 96361; 96374; 96375; 99285; J2270; J2405; J2470; J2704; J7030; Q9967